=== PATIENT | male | born 1980 | race African-American/Black ===

== ENCOUNTER 2017-09-20 16:25 | Emergency (ER) | payer SELFPAY ==
[~2017-09-20] VITALS: Ht 185.4 cm; Wt 111.8 kg
[~2017-09-20 16:25] MED LIST: IBUP800T23 PO
[2017-09-20 17:15] VITALS: BP 158/80; PULSE 81; RESP 18; TEMP 97.6; O2SAT 97
--- NOTE | 2017-09-20 17:41 | PD ---
HPI Chief Complaint: Pain: Acute or Chronic Time Seen by Provider: 17:21 Travel History International Travel<30 days: No Contact w/Intl Traveler<30days: No Traveled to known affect area: No History of Present Illness HPI 37-year-old -[place] male presents with worsening right-sided jaw pain over the past week. Patient denies fever, chills, sore throat, postnasal drip, ear pain, or other upper respiratory symptoms. Patient denies dental pain, but it does hurt in the area of right in front of his ear when he chews or opens his mouth wide, and he is noted that it pops when he does that. Patient states pain is always worse first thing in the morning. Patient has tried aspirin and some muscle relaxants without improvement. His pain is currently 9 out of 10. He has no known drug allergies. PFSH Past Medical History Diminished Hearing: No Past Surgical History Other Surgery: Yes (LEFT WRIST CHILD TRAUMA) Social History Alcohol Use: Yes (occ) Tobacco Use: Yes (1 pk/day) Substance Use: No Allergies-Medications (Allergen,Severity, Reaction): Coded Allergies: No Known Allergies (Verified , 05/30/13) Reported Meds & Prescriptions Reported Meds & Active Scripts Active Ibuprofen 800 Mg Tab 800 Mg PO Q6 PRN Review of Systems Except as stated in HPI: all other systems reviewed are Neg General / Constitutional: No: Fever Eyes: No: Diploplia, Blurred Vision, Visual changes HENT: Positive: Earache, Other, No: Headaches, Vertigo, Lightheadedness, Sore Throat, Rhinitis, Rhinorrhea, Congestion, Nosebleed, Neck Stiffness (See history of present illness), Neck Pain, Masses, Gingival Bleeding, Dental Difficulties, Ear Discharge Cardiovascular: No: Chest Pain or Discomfort Respiratory: No: Shortness of Breath Gastrointestinal: No: Abdominal Pain Genitourinary: No: Dysuria Musculoskeletal: No: Pain Skin: No Rash Neurologic: No: Weakness Psychiatric: No: Depression Endocrine: No: Polydipsia Hematologic/Lymphatic: No: Easy Bruising Physical Exam Narrative GENERAL: Patient appears in mild to moderate distress SKIN: Warm and dry. Normal color. Normal turgor. No rash. HEAD: Atraumatic. Normocephalic. Patient has pain with palpation over the right TMJ. He has positive TMJ popping with jaw maneuvers. This reproduces the patient's symptoms. EYES: Pupils equal and round. No scleral icterus. No injection or drainage. ENT: No nasal bleeding or discharge. Mucous membranes pink and moist. Pharynx is clear. Airways patent. No sign of dental injury or abscess. Pharynx is clear. Airways patent. No tonsillar exudate or swelling. NECK: Trachea midline. Supple and nontender per CARDIOVASCULAR: Regular rate and rhythm. RESPIRATORY: No accessory muscle use. Clear to auscultation. Breath sounds equal bilaterally. MUSCULOSKELETAL: Extremities without clubbing, cyanosis, or edema. No obvious deformities. NEUROLOGICAL: Awake and alert. No obvious cranial nerve deficits. Motor grossly within normal limits. Five out of 5 muscle strength in the arms and legs. Normal speech. PSYCHIATRIC: Appropriate mood and affect; insight and judgment normal. Data Data Last Documented VS Vital Signs Date Time Temp Pulse Resp B/P (MAP) Pulse Ox O2 Delivery O2 Flow Rate FiO2 09/20/17 17:15 97.6 81 18 158/80 (106) 97 MDM Medical Decision Making Medical Screen Exam Complete: Yes Emergency Medical Condition: Yes Differential Diagnosis Dental abscess. Trigeminal neuralgia. TMJ flare. Otitis media. 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 Patient is placed on prednisone 20 mg twice daily for 5 days. Patient is given Flexeril 10 mg nightly #15. 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 Patient is placed on prednisone 20 mg twice daily for 5 days. Patient is given Flexeril 10 mg nightly #15. Patient also given tramadol 50 mg 1 every 6 hours as needed pain #12 Med/Other Pt SpecificInfo: Prescription(s) given Scripts Tramadol (Tramadol) 50 Mg Tab 50 MG PO Q6H Y for PAIN, #12 TAB 0 Refills Prov: Adán Henderson MD 09/20/17 Cyclobenzaprine (Flexeril) 10 Mg Tab 10 MG PO HS for Muscle Spasm, #15 TAB 0 Refills Prov: Adán Henderson MD 09/20/17 Prednisone (Prednisone) 20 Mg Tab 20 MG PO BID for 5 Days, #10 TAB 0 Refills Prov: Santiago,Hung MD 09/20/17 Disposition: 01 DISCHARGE HOME Condition: Stable Spencer Mclaughlin Sep 20, 2017 17:41
[2017-09-20] MEDS ORDERED: TRAM50TA PO ×2 (17:42→17:45)
[2017-09-20] MEDS ORDERED: PRED20 PO (17:42)
[2017-09-20] MEDS ORDERED: CYCL10TA PO (17:42)
== END 2017-09-20 18:19 | disposition home or self-care (01) ==
LOC: NEPK 16:25
DX: M26.601 Right temporomandibular joint disorder, unspecified (principal); F17.200 Nicotine dependence, unspecified, uncomplicated
CPT/HCPCS: 99283